=== PATIENT | female | born 1955 | race Caucasian/White ===

== ENCOUNTER 2018-05-22 06:08 | Inpatient (IN) ==
[2018-05-17 09:14] LABS: Basophils # 0.1 10*3/uL (0.0-0.2); Basophils % 0.9 % (0.0-0.8); Eosinophils # 0.3 10*3/uL (0.0-0.87); Eosinophils % 3.9 % (0.00-10.9); Hematocrit 39.5 VOL% (35.7-47.0); Hemoglobin 12.5 GM/DL (12.0-16.0); Immature Granulocytes % 0.2 %; Immature Granulocytes Absolute 0.02 #; Lymphocytes # 2.4 10*3/uL (1.4-4.0); Lymphocytes % 28.1 % (21.3-54.2); Mean Corpuscular HGB Conc 31.6 GM/DL (32-36); Mean Corpuscular Hemoglobin 29 PG (27-34); Mean Corpuscular Volume 90.4 FL (87-102); Mean Platelet Volume 9.9 FL (9.6-12.0); Monocytes # 0.8 10*3/uL (0.11-0.8); Monocytes % 8.8 % (1.7-12.7); Neutrophils # 4.9 10*3/uL (1.4-7.4); Neutrophils % 58.1 % (38.7-73.9); Platelet Count 292 T/CUMM (130-400); Red Blood Count 4.37 MC/CUMM (3.8-5.5); Red Cell Distribution Width 13.6 % (9.3-17.3); White Blood Count 8.5 T/CUMM (4-12)
[2018-05-17 10:00] LABS: Alanine Aminotransferase 17 U/L (13-56); Albumin 3.7 G/DL (3.4-5.0); Alkaline Phosphatase 84 U/L (45-117); Aspartate Amino Transferase 12 U/L (0-37); Bilirubin,Total < 0.39 MG/DL (0.2-1.0); Blood Urea Nitrogen 12 MG/DL (7-18); Calcium 8.9 MG/DL (8.5-10.1); Glucose 87 MG/DL (74-106); Potassium 4.5 MMOL/L (3.5-5.1); Sodium 136 MMOL/L (136-145); Total Protein 7.9 G/DL (6.4-8.3)
[2018-05-22] MEDS ORDERED: MIDAZOLAM 2 MG/2 ML VIAL IV ONE (07:26)
[2018-05-22] MEDS ORDERED: DIAZEPAM 5 MG TABLET PO ONE ×2 (07:26→08:46)
[2018-05-22] MEDS ORDERED: fentaNYL 100 MCG/2 ML VIAL IV ONE (07:26)
[2018-05-22] MEDS: SODIUM CHLORIDE 0.45% 1,000 ML IV SCH (08:20)
[2018-05-22] MEDS ORDERED: DIAZEPAM 5 MG TABLET ONE ×2 (08:34→09:52)
[2018-05-22 08:48] LABS: INR 0.9; Partial Thromboplastin Time 27.5 SECS (0-40)
[2018-05-22] MEDS ORDERED: LACTULOSE 20 GM/30 ML UDCUP PO PRN (08:49)
[2018-05-22] MEDS ORDERED: PROMETHAZINE 25 MG/1 ML VIAL IM PRN (08:49)
[2018-05-22] MEDS ORDERED: diphenhydrAMINE 50 MG/1 ML VIAL IV PRN (08:52)
[2018-05-22] MEDS ORDERED: fentaNYL 100 MCG/2 ML VIAL ONE (08:58)
[2018-05-22] MEDS ORDERED: MIDAZOLAM 2 MG/2 ML VIAL ONE (08:58)
[2018-05-22] MEDS ORDERED: ONDANSETRON 4 MG/2 ML VIAL ONE (08:59)
[2018-05-22] MEDS: ONDANSETRON 4 MG/2 ML VIAL IV PRN ×2 (10:03→19:27)
[2018-05-22 12:11] LABS: Basophils # 0.1 10*3/uL (0.0-0.2); Basophils % 0.9 % (0.0-0.8); Eosinophils # 0.2 10*3/uL (0.0-0.87); Eosinophils % 3.6 % (0.00-10.9); Hematocrit 40.8 VOL% (35.7-47.0); Hemoglobin 12.7 GM/DL (12.0-16.0); Immature Granulocytes % 0.1 %; Immature Granulocytes Absolute 0.01 #; Lymphocytes % 30.1 % (21.3-54.2); Mean Corpuscular HGB Conc 31.1 GM/DL (32-36); Mean Corpuscular Hemoglobin 28 PG (27-34); Mean Corpuscular Volume 90.7 FL (87-102); Mean Platelet Volume 10.2 FL (9.6-12.0); Monocytes # 0.5 10*3/uL (0.11-0.8); Monocytes % 7.2 % (1.7-12.7); Neutrophils # 3.9 10*3/uL (1.4-7.4); Neutrophils % 58.1 % (38.7-73.9); Platelet Count 282 T/CUMM (130-400); Red Cell Distribution Width 13.8 % (9.3-17.3); White Blood Count 6.7 T/CUMM (4-12)
[2018-05-22 12:33] LABS: Calcium 8.4 MG/DL (8.5-10.1); Osmolality,Calculated 276.4 MOS/KG (273-304); Potassium 4.7 MMOL/L (3.5-5.1)
[2018-05-22] MEDS: AMOXICILLIN 875 MG TABLET PO SCH ×2 (12:37→20:17)
[2018-05-22] MEDS: ACETAMINOPHEN 325 MG TABLET PO SCH ×3 (12:37→20:17)
[2018-05-22] MEDS: SODIUM CHLORIDE 0.9% 1,000 ML IV SCH (12:38)
[2018-05-22] MEDS: GABAPENTIN 300 MG CAPSULE PO SCH ×2 (12:38→20:17)
[2018-05-22] MEDS: DOCUSATE SODIUM 100 MG CAPSULE PO SCH ×2 (12:38→20:17)
[2018-05-22] MEDS: HYDROmorphone 2 MG/1 ML VIAL IV PRN ×2 (12:39→19:23)
[2018-05-22] MEDS: VANCOMYCIN INJ 1,250 MG in SODIUM CHLORIDE 0.9% 250 ML IV SCH (16:31)
[2018-05-22] MEDS: PARoxetine 20 MG TABLET PO SCH (20:17)
[2018-05-22] MEDS: CYCLOBENZAPRINE 10 MG TABLET PO SCH (20:17)
[2018-05-22] MEDS: FAMOTIDINE 20 MG TABLET PO SCH (20:17)
[2018-05-23] MEDS: SODIUM CHLORIDE 0.9% 1,000 ML IV SCH ×2 (03:14→20:59)
[2018-05-23] MEDS: VANCOMYCIN INJ 1,250 MG in SODIUM CHLORIDE 0.9% 250 ML IV SCH ×2 (03:15→15:24)
[2018-05-23] MEDS: ACETAMINOPHEN 325 MG TABLET PO SCH ×4 (03:26→20:59)
[2018-05-23] MEDS: HYDROmorphone 2 MG/1 ML VIAL IV PRN ×6 (03:26→14:05)
[2018-05-23] MEDS: ONDANSETRON 4 MG/2 ML VIAL IV PRN (03:30)
[2018-05-23 05:54] LABS: Basophils # 0.1 10*3/uL (0.0-0.2); Basophils % 0.6 % (0.0-0.8); Eosinophils # 0.4 10*3/uL (0.0-0.87); Eosinophils % 4.1 % (0.00-10.9); Hematocrit 41.8 VOL% (35.7-47.0); Hemoglobin 12.8 GM/DL (12.0-16.0); Immature Granulocytes % 0.3 %; Immature Granulocytes Absolute 0.03 #; Lymphocytes # 2.6 10*3/uL (1.4-4.0); Lymphocytes % 30.2 % (21.3-54.2); Mean Corpuscular HGB Conc 30.6 GM/DL (32-36); Mean Corpuscular Hemoglobin 28 PG (27-34); Mean Corpuscular Volume 91.5 FL (87-102); Mean Platelet Volume 10.3 FL (9.6-12.0); Monocytes # 0.6 10*3/uL (0.11-0.8); Monocytes % 7.4 % (1.7-12.7); Neutrophils % 57.4 % (38.7-73.9); Platelet Count 302 T/CUMM (130-400); Red Blood Count 4.57 MC/CUMM (3.8-5.5); Red Cell Distribution Width 13.8 % (9.3-17.3); White Blood Count 8.6 T/CUMM (4-12)
[2018-05-23 06:28] LABS: Calcium 8.3 MG/DL (8.5-10.1); Osmolality,Calculated 282.1 MOS/KG (273-304); Potassium 4.5 MMOL/L (3.5-5.1)
[2018-05-23] MEDS ORDERED: GENTAMICIN 80 MG/2 ML VIAL ONE (09:15)
[2018-05-23] MEDS ORDERED: PROMETHAZINE INJ 25 MG in SODIUM CHLORIDE 0.9% 50 ML IV PRN (10:35)
[2018-05-23] MEDS ORDERED: MORPHINE 10 MG/1 ML VIAL IV PRN (10:35)
[2018-05-23] MEDS ORDERED: ONDANSETRON 4 MG/2 ML VIAL IV PRN (10:35)
[2018-05-23] MEDS ORDERED: diphenhydrAMINE 50 MG/1 ML VIAL IV PRN (10:35)
[2018-05-23 10:51] LABS: Basophils % 0.5 % (0.0-0.8); Eosinophils # 0.3 10*3/uL (0.0-0.87); Eosinophils % 3.9 % (0.00-10.9); Hematocrit 40.7 VOL% (35.7-47.0); Hemoglobin 12.6 GM/DL (12.0-16.0); Immature Granulocytes % 0.5 %; Immature Granulocytes Absolute 0.04 #; Lymphocytes # 2.3 10*3/uL (1.4-4.0); Mean Corpuscular Hemoglobin 29 PG (27-34); Mean Corpuscular Volume 92.1 FL (87-102); Mean Platelet Volume 9.9 FL (9.6-12.0); Monocytes # 0.5 10*3/uL (0.11-0.8); Neutrophils # 4.8 10*3/uL (1.4-7.4); Neutrophils % 60.1 % (38.7-73.9); Platelet Count 252 T/CUMM (130-400); Red Blood Count 4.42 MC/CUMM (3.8-5.5)
[2018-05-23 10:53] LABS: Apearance,Urine CLEAR (Clear); Bilirubin,Urine Negative (Negative); Blood, Urine Moderate mg/dL (Negative); Glucose,Urine (UA) Negative (Negative); Ketones,Urine Negative (Negative); Mucus,Urine Occasional /LPF (Occasional); Nitrite,Urine Negative (Negative); Protein,Urine Negative; RBC,Urine 29 /HPF (0-4); Squamous Epithelial Cell,Urine Occasional /HPF (0-10); Urine Color Straw (Yellow); Urine Urobilinogen < 2.0 EU/DL (0.2-1.0); WBC,Urine 24 /HPF (0-6)
[2018-05-23 11:17] LABS: Calcium 8.1 MG/DL (8.5-10.1); Osmolality,Calculated 278.4 MOS/KG (273-304); Potassium 5.3 MMOL/L (3.5-5.1)
[2018-05-23] MEDS: GABAPENTIN 300 MG CAPSULE PO SCH ×2 (13:03→20:59)
[2018-05-23] MEDS: AMOXICILLIN 875 MG TABLET PO SCH ×2 (13:03→20:58)
[2018-05-23] MEDS: DOCUSATE SODIUM 100 MG CAPSULE PO SCH ×2 (13:03→20:59)
[2018-05-23] MEDS: SODIUM CHLORIDE 0.45% 1,000 ML IV SCH (13:04)
[2018-05-23] MEDS ORDERED: SEVOFLURANE 1 UNIT/15 MINUTE INH ONE (14:42)
[2018-05-23] MEDS: FAMOTIDINE 20 MG TABLET PO SCH (20:59)
[2018-05-23] MEDS: PARoxetine 20 MG TABLET PO SCH (20:59)
[2018-05-23] MEDS: CYCLOBENZAPRINE 10 MG TABLET PO SCH (21:00)
[2018-05-24] MEDS: ACETAMINOPHEN 325 MG TABLET PO SCH ×2 (03:17→09:08)
[2018-05-24] MEDS: VANCOMYCIN INJ 1,250 MG in SODIUM CHLORIDE 0.9% 250 ML IV SCH (03:18)
[2018-05-24] MEDS ORDERED: ALUMINUM/MAGNES/SIMETH MAX STR 30 ML UDCUP PO PRN (03:22)
[2018-05-24 08:10] LABS: Calcium 8.5 MG/DL (8.5-10.1); Osmolality,Calculated 280.3 MOS/KG (273-304); Potassium 4.6 MMOL/L (3.5-5.1)
[2018-05-24] MEDS: AMOXICILLIN 875 MG TABLET PO SCH (09:08)
[2018-05-24] MEDS: DOCUSATE SODIUM 100 MG CAPSULE PO SCH (09:08)
[2018-05-24] MEDS: GABAPENTIN 300 MG CAPSULE PO SCH (09:08)
[2018-05-24 09:36] VITALS: BP 151/81
[2018-05-24] MEDS: HYDROmorphone 2 MG/1 ML VIAL IV PRN (10:23)
== END 2018-05-24 12:24 | disposition home or self-care (01) | DRG 661 ==
LOC: N.RAD 06:08 → N.SDSINP 06:09 → N.5E 11:34
PROVIDERS: ADMIT Surgery; ATTEND Surgery